=== PATIENT | male | born 2000 | race African-American/Black ===

== ENCOUNTER 2023-04-12 10:04 | Outpatient (AMB) | payer OTHER, SELFPAY ==
[2023-04-12 10:09] VITALS: BP 124/80; PULSE 94; O2SAT 98; BMI 28.2
--- NOTE | 2023-04-12 10:09 | A.OFFPC_ITS ---
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 Required: No Accompanied by: Self / Same As Patient Allergies No Known Allergies Allergy (Verified 04/12/23 10:18) Medication List - Last Reconciled 04/12/23 by Sean Barrios MD No Known Home Meds Tobacco use date assessed: 04/12/23 Dental Screening Dental Screen Date: 04/12/23 Did you have a dental visit in the last 12 months?: Yes Did you have a dental problem in the last 6 months where you did not have access to dental care?: No Was dental information given to patient?: 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, 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 Details Patient comes in today for his annual physical examination and to establish care - is a new patient to the practice He was seen briefly at the walk-in clinic last month for a right big toe injury, which he states has since resolved - was prescribed oral Doxycycline for a week States that he currently feels okay He denies any headaches or dizziness Denies any chest pains, no SOB No nausea/vomiting, no abdominal pain No change in bowel habits noted Denies any acute urinary or symptoms States that he has a history of truncal acne (over his back and shoulder areas) and was prescribed oral Doxycycline 100 mg BID by her previous PCP (hand cultivator) and would like to get a refill on this Rx States that he was never referred to a specialist for his back acne before [facility] Medical History (Updated 04/12/23 @ 10:31 by Sean Barrios MD) Acne rosacea with hyperkeratotic plaques on trunk Overweight (BMI 25.0-29.9) Surgical History (Updated 04/12/23 @ 10:25 by Sean Barrios MD) No pertinent past surgical history Family History Other Chronic mental illness Diabetes Hypertension Substance abuse Social History Housing: Apartment Patient Tobacco Use Status: Never used Tobacco e-Cigarette/Vaping Use: Never Used service: No Current occupational status: employed Current occupational exposures/hazards: No Cognitive needs: No Hearing needs: No Vision needs: No Questionnaire PHQ-9 Over the last 2 weeks, how often have you been bothered by any of the following problems? 1. Little interest or pleasure in doing things: not at all 2. Feeling down, depressed, or hopeless: not at all 3. Trouble falling or staying asleep, or sleeping too much: not at all 4. Feeling tired or having little energy: not at all 5. Poor appetite or overeating: not at all 6. Feeling bad about yourself - or that you are a failure or have let yourself or your family down: not at all 7. Trouble concentrating on things, such as reading the newspaper or watching television: not at all 8. Moving or speaking so slowly that other people could have noticed. Or the opposite - being so fidgety or restless that you have been moving around a lot more than usual: not at all 9. Thoughts that you would be better off or of hurting yourself in some way: not at all Total score: 0 Depression Screening Interpretation: Negative 19458 - PHQ-9 Billing: Yes Source: Developed by Drs. Ashok Crawford, Kya Marie, David New and colleagues, with an educational daryl from [employer]. Thrive Questionnaire Date Thrive assessed: 04/12/23 I am a: Patient What is your living situation today?: I have a steady place to live Within the past 12 months, did the food you bought not last and you didn't have the money to get more?: Never true Within the past 12 months, did you worry whether your food would run out before you got money to buy more?: Never true Do you have trouble paying for medicines?: No Do you have trouble getting transportation to medical appointments?: No Do you have trouble paying your heating and electricity bill?: No Do you have trouble taking care of your child, family member or friend?: No Do you have trouble with day-to-day activities such as bathing, preparing meals, shopping, managing finances, etc.?: No Are you currently unemployed and looking for a job?: No Are you interested in more education?: No Please select the resources that you would like help with: None Currently or been in a relationship where the following occur: no concerns reported AUDIT C Alcohol Use Questionnaire (AUDIT-C) 1. How often do you have a drink containing alcohol?: Never Total Score: 0 Score Reviewed/Action Taken: Yes BRITTNEY-7 AMB Questionnaire BRITTNEY-7 Date BRITTNEY - 7 assessed: 04/12/23 Feeling nervous, anxious, or on edge: 0 = Not at all Not being able to stop or control worryin = Not at all Worrying too much about different things: 0 = Not at all Trouble relaxin = Not at all Being so restless that it is hard to sit still: 0 = Not at all Becoming easily annoyed or irritable: 0 = Not at all Feeling afraid as if something awful might happen: 0 = Not at all Total BRITTNEY-7 score (0-4 normal; 5-9 mild; 10-14 moderate; 15-21 severe): 0 Source: Developed by Drs. Ashok Crawford, Kya Marie, David New and colleagues, with an educational daryl from [employer]. Review of Systems Const Denies chills, Denies fatigue, Denies fever(s), Denies headache(s), Denies malaise and Denies weakness Eyes Denies blurry vision, Denies change in vision, Denies irritation and Denies itchy eyes ENT Denies dysphagia, Denies dizziness, Denies otalgia, Denies headache(s), Denies nasal congestion, Denies neck pain, Denies odynophagia and Denies sore throat Card Denies chest pain, Denies rapid heart rate, Denies irregular heart rhythm, Denies palpitations and Denies dyspnea Resp Denies chest congestion, Denies cough, Denies dyspnea and Denies wheezing GI Denies abdominal pain, Denies bloating, Denies constipation, Denies dysphagia, Denies heartburn, Denies diarrhea, Denies nausea, Denies odynophagia and Denies vomiting Denies hematuria, Denies difficulty urinating, Denies dysuria, Denies urinary frequency and Denies urinary urgency Musc Denies back pain, Denies arthralgias, Denies joint swelling, Denies muscle weakness and Denies neck pain Skin/Breast Reports acne (multiple acne lesions with some scarring over his back), Denies change in pigmentation, Reports lesions, Denies rash and Denies unusual bruising Neuro Denies dizziness, Denies headache(s), Denies paresthesias and Denies weakness Endo Denies fatigue and Denies palpitations Aller/Immun Denies itchy eyes and Denies wheezing Physical exam (Primary Care) Vital Signs: Last Vital Signs Pulse 94 04/12/23 10:09 BP 124/80 04/12/23 10:09 Pulse Ox 98 04/12/23 10:09 Oxygen Delivery Method Room Air 04/12/23 10:09 BMI result Body Mass Index 28.2 Tobacco/Smoking Status: Tobacco use Status Tobacco use date assessed 04/12/23 04/12/23 10:11 Patient Tobacco Use Status Never used Tobacco 04/12/23 10:11 e-Cigarette/Vaping Use Never Used 04/12/23 10:11 PHQ-9: PHQ-9 Score PHQ-9: Total score 0 04/12/23 10:17 Depression Screening Interpretation: Negative Thrive Assessment: Date of Thrive Assessment Date Thrive assessed 04/12/23 04/12/23 10:17 Currently or been in a relationship where the following occur: no concerns reported Const General: no acute distress, alert and awake Orientation/consciousness: patient oriented x3 HENMT Head: Yes normocephalic and Yes atraumatic Ears: external ears normal, TM's normal bilaterally and EAC's normal General nose exam: No nasal discharge present Face and sinus: Yes normal facial exam and Yes sinuses nontender Teeth and gingiva: dentition normal Throat: Yes posterior oropharynx normal and Yes tonsils normal (no TP congestion) Eyes Eyelids: Yes eyelids normal Conjunctivae: conjunctivae normal Pupils: Equal, round and reactive pupils present EOM: EOMs intact bilaterally Neck Neck: Yes no lymphadenopathy and Yes supple Thyroid: Thyroid normal Resp Auscultation: clear to auscultation bilaterally, no rales and no wheezes Cardio Rate: regular rate Rhythm: regular rhythm Heart sounds: no murmurs GI Palpation (GI): Soft to palpation, nontender and No hepatosplenomegaly present Auscultation: normal bowel sounds General: Yes no CVA tenderness Male General Exam: Yes normal external exam Penis: circumcised Scrotum: scrotum normal, testes descended bilaterally, no inguinal hernias and no masses Back/Spine/Pelvis Back: no CVA tenderness Thoracic/Lumbar Spine: thoracic and lumbar spine normal to inspection Skin Other: (+) scattered multiple acne lesions with a few scars noted over the entire back Rashes: no rashes Neuro General: patient oriented x3, moves all extremities, no focal motor deficits and CN's II-XI intact bilaterally Cranial nerves: Yes Equal, round and reactive pupils present Cognition (Neuro): normal cognition Gait exam (Neuro): Normal gait present Extrem General: Yes no clubbing, cyanosis or edema Assessment and Plan Assessment & Plan (1) Annual physical exam: Code(s): Z00.00 - Encounter for general adult medical examination without abnormal findings Plan: Check labs (2) Acne rosacea with hyperkeratotic plaques on trunk: Code(s): L71.9 - Rosacea, unspecified Plan: Patient states that he was prescribed Doxycycline by his previous PCP (hand cultivator) and has been taking Doxycycline 100 mg BID for over a year now for his back acne and would like to see if he can get this Rx refilled Have advised that Doxycycline is usually taken at 100 mg QD for acne prophylaxis and I would prefer he take it that way - Rx sent to his local pharmacy Will also refer him to dermatology for further evaluation and management/recommendations (3) Overweight (BMI 25.0-29.9): Code(s): E66.3 - Overweight Plan: Discussed diet/exercise/lose weight - goal is BMI of < 25 Plan To return in 1 year for his next annual physical examination Orders: Orders Cholesterol Today E66.3 - Overweight, Z00.00 - Encounter for general adult medical examination without abnormal findings Comprehensive Met. Panel Today E66.3 - Overweight, L71.9 - Rosacea, unspecified, Z00.00 - Encounter for general adult medical examination without abnormal findings TSH reflex Free T4 Today E66.3 - Overweight, L71.9 - Rosacea, unspecified, Z00.00 - Encounter for general adult medical examination without abnormal findings Vitamin D 25-OH Total Today E55.9 - Vitamin D deficiency, unspecified, Z00.00 - Encounter for general adult medical examination without abnormal findings Complete Blood Count Auto Diff Today L71.9 - Rosacea, unspecified, Z00.00 - Encounter for general adult medical examination without abnormal findings UA CC w/rflx Micro + Cult Today R30.0 - Dysuria, Z00.00 - Encounter for general adult medical examination without abnormal findings Referrals Dermatology Referral L71.9 - Rosacea, unspecified Medications: New doxycycline hyclate 100 mg PO DAILY 30 days 30 caps 3RF L71.9 - Rosacea, unspecified Coding Level of Care Code New Pt Prev Care 18-39yr([id number] Diagnoses Annual physical exam Z00.00 Acne rosacea with hyperkeratotic plaques on trunk L71.9 Overweight (BMI 25.0-29.9) E66.3
== END 2023-04-12 10:39 | disposition home or self-care (01) ==
PROVIDERS: PCP Internal Medicine; Visit Provider Internal Medicine
DX: Z00.00 Encounter for general adult medical examination without abnormal findings (principal); L71.9 Rosacea, unspecified; E66.3 Overweight
CPT/HCPCS: 99385

== ENCOUNTER 2023-04-12 10:43 | Outpatient (REF) | payer OTHER, SELFPAY ==
[2023-04-12 10:55] LABS: MANUAL DIFF FLAG NO
[2023-04-12 12:04] LABS: Basophils Percent Auto 0.3 % (0-2); Eosinophils Percent Auto 0.6 % (0-4); Hematocrit 44.9 % (42.0-52.0); Hemoglobin 14.7 g/dl (14.0-18.0); Lymphocytes Absolute Auto 1.7 X10*3/uL (1.2-4.9); Lymphocytes Percent Auto 27.5 % (20-40); Mean Corpuscular HGB Conc 32.7 g/dl (31.0-36.0); Mean Corpuscular Hemoglobin 25.7 pg (27.0-33.0); Mean Corpuscular Volume 78.5 fL (80.0-98.0); Mean Platelet Volume 11.2 fL (9.4-12.4); Monocytes Absolute Auto 0.5 X10*3/uL (0.1-1.2); Monocytes Percent Auto 8.4 % (2-11); Neutrophils Percent Auto 63.2 % (45-73); Platelet Count 250 X10*3/uL (160-400); Red Blood Count 5.72 X10*6/uL (4.60-5.80); White Blood Count 6.3 X10*3/uL (4.8-10.8)
[2023-04-12 12:08] LABS: Appearance Urine Clear; Color Urine Yellow; Glucose Urine UA Negative (Negative); Leukocyte Esterase Urine Negative (Negative); Nitrite Urine Negative (Negative); Specific Gravity - Urine 1.025 (1.005-1.025); Urine Blood Negative (Negative); Urine Ketones Trace mg/dL (Negative); Urine Protein Negative (Neg-Trace)
[2023-04-12 13:24] LABS: Alanine Aminotransferase 15 U/L (0-40); Albumin Level 4.5 g/dL (3.5-5.0); Alkaline Phosphatase 108 U/L (39-117); Anion Gap 11 (12-20); Aspartate Amino Transferase 16 U/L (5-37); Bilirubin Total 0.4 mg/dL (0.0-1.0); Blood Urea Nitrogen 12 mg/dL (9-16); Calcium 9.8 mg/dL (8.4-10.2); Carbon Dioxide 28 mmol/L (22-29); Chloride 106 mmol/L (96-108); Cholesterol 152 mg/dL; Estimated Glomerular Filt Rate > 60; Glucose Random 68 mg/dL (60-115); Potassium 3.7 mmol/L (3.3-5.1); Sodium 141 mmol/L (135-145); Total Protein 7.6 g/dL (6.5-8.0)
[2023-04-12 13:41] LABS: TSH reflex Free T4 0.93 uIU/mL (0.32-4.0); Vitamin D 25-OH Total 11.4 ng/mL (>30)
== END 2023-04-12 10:44 | disposition home or self-care (01) ==
LOC: HO.LAB 10:43
PROVIDERS: PCP Internal Medicine; Visit Provider Internal Medicine
DX: Z00.00 Encounter for general adult medical examination without abnormal findings (principal); L71.9 Rosacea, unspecified; R30.0 Dysuria; E55.9 Vitamin D deficiency, unspecified; E66.3 Overweight
CPT/HCPCS: 36415; 80053; 81003; 82306; 82465; 84443; 85025

== ENCOUNTER 2023-07-19 11:39 | Outpatient (AMB) | payer OTHER, SELFPAY ==
[2023-07-19 13:18] VITALS: BP 130/80; PULSE 89; TEMP 36.6; O2SAT 99; BMI 28.1
--- NOTE | 2023-07-19 13:18 | AM.OFFWIN_ITS ---
Intake Vital Signs 07/19/23 13:18 Height 6 ft 3 in Weight 102.058 kg BMI 28.1 BP 130/80 Blood Pressure Location Rt brachial Position Sitting Pulse 89 Pulse Source Pulse Oximeter Temp 97.8 F Temp Source Temporal Artery Scan Pulse Oximetry (%) 99 Oxygen Delivery Method Room Air Intake Visit Reasons: EP Lft foot infected open wound Intake Note: pt is here for c.o right foot open wound Patient Tobacco Use Status: Never used Tobacco Allergies No Known Allergies Allergy (Verified 07/19/23 13:18) Do you need a note to return to daycare/school/sports/work: Yes HPI HPI Comments History of Present Illness Details 1322 22-year-old male presents with a wound t o his right foot on the top, has been present for 2 days, patient reports this 1 started after work 1 day, he wears work boots but is not sure if these contributed to the wound. He reports it started off is red and now it appears to be yellow. He reports it is uncomfortable. He covered it with a Band-Aid and bacitracin. Denies numbness, tingling, fevers, chills, blunt trauma. Physical exam significant for abrasion to top of right foot size of a nickel with overlying erythema and warmth. Normal sensation. Neurovascular intact Likely infected abrasion. Unlikely threat to [place], neurovascular compromise, fracture dislocation Plan bacitracin Educated patient on diagnosis and treatment plan, answered all question, patient verbalizes understanding. At this time patient will be discharged home, advised to return with new or worsening symptoms. Educated on worrisome signs and symptoms and when to return. At this time I feel comfortable discharge home. [facility] Medical History Acne rosacea with hyperkeratotic plaques on trunk Overweight (BMI 25.0-29.9) Surgical History No pertinent past surgical history Family History Other Chronic mental illness Diabetes Hypertension Substance abuse Social History Housing: Apartment Patient Tobacco Use Status: Never used Tobacco e-Cigarette/Vaping Use: Never Used service: No Current occupational status: employed Current occupational exposures/hazards: No Cognitive needs: No Hearing needs: No Vision needs: No Review of Systems Const Details: Constitutional : No Weight loss, No Fever, No Chills, No Fatigue, No Malaise ENT/Mouth : No sore throat, No Rhinorrhea Eyes: No Eye Pain, No Swelling, No Redness Cardiovascular : No Chest Pain, No SOB, No Dyspnea on Exertion, No Orthopnea, No Edema, No Palpitations Respiratory : No Cough, No Sputum, No Wheezing Gastrointestinal : No Nausea, No Vomiting, No Diarrhea, No Constipation, No abdominal Pain, No Hematochezia, No Melena Genitourinary : No Dysuria, No Urinary Frequency, No Hematuria, Musculoskeletal : No joint pain, No Myalgias, No Joint Swelling Skin : + Skin Lesions, No rash Neuro : No Weakness, No Numbness, No Dizziness, No Headache Psych : No Anxiety/Panic, No Depression All other systems reviewed and are negative All systems reviewed & are unremarkable except as noted in HPI and below Physical Exam Vital Signs: Last Vital Signs Temp 97.8 F 07/19/23 13:18 Pulse 89 07/19/23 13:18 BP 130/80 07/19/23 13:18 Pulse Ox 99 07/19/23 13:18 Oxygen Delivery Method Room Air 07/19/23 13:18 BMI result Body Mass Index 28.1 vss Appearance: Alert.? Oriented X3.? No acute distress.? Head: Normocephalic, atraumatic, no step-offs or deformities Eyes: Pupils equal, round and reactive to light.? CVS: Normal heart rate and rhythm.? Pulses normal.? Respiratory: No respiratory distress.? Breath sounds normal.? Skin: Skin warm and dry.? Normal skin color.? Normal skin turgor.? Extremities: No lower extremity edema.? 5/5 strength to bilateral upper and lower extremities 2+ DP,AT,PT pulses equal and b/l. No foot drop + abrasion renetta size and round to top of right foot with surrounding warmth and errythema. Neuro: Oriented X 3.? No motor deficit.? No sensory deficit. CN 2-12 intact Assessment & Plan Assessment & Plan (1) Abrasion foot/toe: Code(s): S90.819A - Abrasion, unspecified foot, initial encounter Plan Take your medications as prescribed. If you were prescribed antibiotics today, it is important that you take your medication to their entirety, do not skip any doses, do not finish them early. Follow-up with your primary care provider this week. Return to the emergency department with new or worsening symptoms. Such as fevers, chills, chest pain, shortness of breath, nausea, vomiting, dizziness, headache, vision changes, lethargy In case of emergency call 911 Medications: New bacitracin zinc 1 appl topical BID 14 grams 0RF Coding Level of Care Code Est Pt Level 3 (54269) Diagnoses Abrasion foot/toe S90.817O
== END 2023-07-19 13:22 | disposition home or self-care (01) ==
PROVIDERS: PCP Internal Medicine; Visit Provider Physician Assistant
DX: S90.812A Abrasion, left foot, initial encounter (principal)
CPT/HCPCS: 99213

== ENCOUNTER 2024-06-16 15:39 | Outpatient (AMB) | payer OTHER, SELFPAY ==
[2024-06-16 15:41] VITALS: BP 126/84; PULSE 87; O2SAT 96; BMI 26.4
--- NOTE | 2024-06-16 15:41 | MHC.PC.OV ---
Vital Signs 06/16/24 15:41 Height 6 ft 3 in Weight 211 lb 8 oz BMI 26.4 BP 126/84 Blood Pressure Location Lt brachial Position Sitting Pulse 87 Pulse Source Pulse Oximeter Pulse Oximetry (%) 96 Oxygen Delivery Method Room Air Intake Visit Reasons: ANNUAL Life Skills Educator Required: No Accompanied by: Self / Same As Patient Allergies No Known Allergies Allergy (Verified 06/16/24 16:26) Medication List - Last Reconciled 06/16/24 by Sean Barrios MD bacitracin zinc 1 appl topical BID Tobacco use date assessed: 06/16/24 Dental Screening Dental Screen Date: 06/16/24 Did you have a dental visit in the last 12 months?: Yes Did you have a dental problem in the last 6 months where you did not have access to dental care?: No Was dental information given to patient?: Patient has dentist HPI ANNUAL HPI Details Patient comes in today for his annual physical examination States that he feels okay He denies any headaches or dizziness Denies any chest pains, no shortness of breath No nausea/vomiting, no abdominal pain No change in bowel habits noted He denies any acute urinary symptoms [facility] Medical History (Updated 06/16/24 @ 16:29 by Sean Barrios MD) Vitamin D deficiency Acne rosacea with hyperkeratotic plaques on trunk Overweight (BMI 25.0-29.9) Surgical History No pertinent past surgical history Family History Other Chronic mental illness Diabetes Hypertension Substance abuse Social History Housing: Apartment Patient Tobacco Use Status: Never used Tobacco e-Cigarette/Vaping Use: Never Used service: No Current occupational status: employed Current occupational exposures/hazards: No Cognitive needs: No Hearing needs: No Vision needs: No Questionnaire PHQ-9 Over the last 2 weeks, how often have you been bothered by any of the following problems? 1. Little interest or pleasure in doing things: not at all 2. Feeling down, depressed, or hopeless: not at all 3. Trouble falling or staying asleep, or sleeping too much: not at all 4. Feeling tired or having little energy: several days 5. Poor appetite or overeating: not at all 6. Feeling bad about yourself - or that you are a failure or have let yourself or your family down: not at all 7. Trouble concentrating on things, such as reading the newspaper or watching television: not at all 8. Moving or speaking so slowly that other people could have noticed. Or the opposite - being so fidgety or restless that you have been moving around a lot more than usual: not at all 9. Thoughts that you would be better off or of hurting yourself in some way: not at all Total score: 1 Depression Screening Interpretation: Negative Depression Screening Done: Yes 32255 - PHQ-9 Billing: Yes Source: Developed by Drs. Ashok Crawford, Kya Marie, David New and colleagues, with an educational daryl from [employer]. Thrive Questionnaire Date Thrive assessed: 06/16/24 I am a: Patient What is your living situation today?: I have a steady place to live Within the past 12 months, did the food you bought not last and you didn't have the money to get more?: Never true Within the past 12 months, did you worry whether your food would run out before you got money to buy more?: Never true Do you have trouble paying for medicines?: No Do you have trouble getting transportation to medical appointments?: No Do you have trouble paying your heating and electricity bill?: No Do you have trouble taking care of your child, family member or friend?: No Do you have trouble with day-to-day activities such as bathing, preparing meals, shopping, managing finances, etc.?: No Are you currently unemployed and looking for a job?: No Are you interested in more education?: No Please select the resources that you would like help with: None Currently or been in a relationship where the following occur: No concerns reported THRIVE Score: 0 AUDIT C Alcohol Use Questionnaire (AUDIT-C) 1. How often do you have a drink containing alcohol?: 2-4 times a month 2. How many drinks containing alcohol do you have on a typical day when you are drinking?: 3 or 4 3. How often do you have six or more drinks on one occasion?: Less than monthly Total Score: 4 Score Reviewed/Action Taken: Yes BRITTNEY-7 AMB Questionnaire BRITTNEY-7 Date BRITTNEY - 7 assessed: 06/16/24 Feeling nervous, anxious, or on edge: 0 = Not at all Not being able to stop or control worryin = Not at all Worrying too much about different things: 0 = Not at all Trouble relaxin = Not at all Being so restless that it is hard to sit still: 0 = Not at all Becoming easily annoyed or irritable: 1 = Several days Feeling afraid as if something awful might happen: 0 = Not at all Total BRITTNEY-7 score (0-4 normal; 5-9 mild; 10-14 moderate; 15-21 severe): 1 Source: Developed by Drs. Ashok Crawford, Kya Marie, David New and colleagues, with an educational daryl from [employer]. Review of Systems Const Denies chills, Denies fatigue, Denies fever(s), Denies headache(s), Denies malaise and Denies weakness Eyes Denies blurry vision, Denies change in vision, Denies irritation and Denies itchy eyes ENT Denies dysphagia, Denies dizziness, Denies otalgia, Denies headache(s), Denies nasal congestion, Denies neck pain, Denies odynophagia and Denies sore throat Card Denies chest pain, Denies rapid heart rate, Denies irregular heart rhythm, Denies palpitations and Denies dyspnea Resp Denies chest congestion, Denies cough, Denies dyspnea and Denies wheezing GI Denies abdominal pain, Denies bloating, Denies constipation, Denies dysphagia, Denies heartburn, Denies diarrhea, Denies nausea, Denies odynophagia and Denies vomiting Denies hematuria, Denies difficulty urinating, Denies dysuria, Denies urinary frequency and Denies urinary urgency Musc Denies back pain, Denies arthralgias, Denies joint swelling, Denies muscle weakness and Denies neck pain Skin/Breast Denies change in pigmentation, Denies lesions, Denies rash and Denies unusual bruising Neuro Denies dizziness, Denies headache(s), Denies paresthesias and Denies weakness Endo Denies fatigue and Denies palpitations Aller/Immun Denies itchy eyes and Denies wheezing Physical exam (Primary Care) Vital Signs: Last Vital Signs Pulse 87 06/16/24 15:41 BP 126/84 06/16/24 15:41 Pulse Ox 96 06/16/24 15:41 Oxygen Delivery Method Room Air 06/16/24 15:41 BMI result Body Mass Index 26.4 Tobacco/Smoking Status: Tobacco use Status Tobacco use date assessed 06/16/24 06/16/24 15:46 Patient Tobacco Use Status Never used Tobacco 06/16/24 15:46 e-Cigarette/Vaping Use Never Used 06/16/24 15:46 PHQ-9: PHQ-9 Score PHQ-9: Total score 1 06/16/24 16:31 Depression Screening Interpretation: Negative Thrive Assessment: Date of Thrive Assessment Date Thrive assessed 06/16/24 06/16/24 15:46 Currently or been in a relationship where the following occur: No concerns reported Const General: no acute distress, alert and awake Orientation/consciousness: patient oriented x3 HENMT Head: Yes normocephalic and Yes atraumatic Ears: external ears normal, TM's normal bilaterally and EAC's normal General nose exam: No nasal discharge present Face and sinus: Yes normal facial exam and Yes sinuses nontender Teeth and gingiva: dentition normal Throat: Yes posterior oropharynx normal and Yes tonsils normal (no TP congestion) Eyes Eyelids: Yes eyelids normal Conjunctivae: conjunctivae normal Pupils: Equal, round and reactive pupils present EOM: EOMs intact bilaterally Neck Neck: Yes no lymphadenopathy and Yes supple Thyroid: Thyroid normal Resp Auscultation: clear to auscultation bilaterally, no rales and no wheezes Cardio Rate: regular rate Rhythm: regular rhythm Heart sounds: no murmurs GI Palpation (GI): Soft to palpation, nontender and No hepatosplenomegaly present Auscultation: normal bowel sounds General: Yes no CVA tenderness Back/Spine/Pelvis Back: no CVA tenderness Thoracic/Lumbar Spine: thoracic and lumbar spine normal to inspection Skin Lesions: no lesions Rashes: no rashes Neuro General: patient oriented x3, moves all extremities, no focal motor deficits and CN's II-XI intact bilaterally Cranial nerves: Yes Equal, round and reactive pupils present Cognition (Neuro): normal cognition Gait exam (Neuro): Normal gait present Extrem General: Yes no clubbing, cyanosis or edema Office Procedures Flu Questionnaire Does the patient have a severe egg allergy?: No Immunizations Fluarix Triv [id number] (PF) 45 mcg (15 mcg x 3)/0.5 mL IM syringe Performing Provider: Sean Barrios MD [place] Documented (not given) by: BRITNI Serrano on 06/16/24 15:47 Reason Not Given: Received Previously Coding Level of Care Code Est Pt Prev Care 18-39y(04265) Diagnoses Annual physical exam Z00.00 Acne rosacea with hyperkeratotic plaques on trunk L71.9 Vitamin D deficiency E55.9 RBC microcytosis R71.8 Overweight (BMI 25.0-29.9) E66.3 Assessment & Plan Assessment & Plan (1) Annual physical exam: Code(s): Z00.00 - Encounter for general adult medical examination without abnormal findings Category: Medical Plan: Check labs (2) Acne rosacea with hyperkeratotic plaques on trunk: Code(s): L71.9 - Rosacea, unspecified Category: Medical Plan: Continue topical Bacitracin zinc BID as instructed Follow up with dermatology as scheduled (3) Vitamin D deficiency: Code(s): E55.9 - Vitamin D deficiency, unspecified Category: Medical Plan: He is advised that his Vitamin D level was low on his previous labs from last year Will start him on Vitamin D3 2000 units QD Will recheck his Vitamin D level for follow up (4) RBC microcytosis: Code(s): R71.8 - Other abnormality of red blood cells Category: Medical Plan: Will send him for Hgb electrophoresis for further evaluation (5) Overweight (BMI 25.0-29.9): Code(s): E66.3 - Overweight Category: Medical Plan: Reinforced diet/exercise as tolerated/lose weight Plan To return in 1 year for his next annual physical examination Orders: Orders Influenza [id number] Immunization 06/16/24 Z23 - Encounter for immunization Complete Blood Count Auto Diff 06/16/24 D64.9 - Anemia, unspecified, Z00.00 - Encounter for general adult medical examination without abnormal findings Cholesterol 06/16/24 Z00.00 - Encounter for general adult medical examination without abnormal findings TSH reflex Free T4 06/16/24 E78.00 - Pure hypercholesterolemia, unspecified, Z00.00 - Encounter for general adult medical examination without abnormal findings UA CC w/rflx Micro + Cult 06/16/24 R30.0 - Dysuria, Z00.00 - Encounter for general adult medical examination without abnormal findings Vitamin D 25-OH Total 06/16/24 E55.9 - Vitamin D deficiency, unspecified, Z00.00 - Encounter for general adult medical examination without abnormal findings Comprehensive Met. Panel 06/16/24 Z00.00 - Encounter for general adult medical examination without abnormal findings IRON PROFILE 06/16/24 R71.8 - Other abnormality of red blood cells Hemoglobin Electrophoresis 06/16/24 R71.8 - Other abnormality of red blood cells Medications: New cholecalciferol (vitamin D3) 50 mcg PO DAILY 90 days 90 caps 3RF E55.9 - Vitamin D deficiency, unspecified
== END 2024-06-16 16:36 | disposition home or self-care (01) ==
PROVIDERS: PCP Internal Medicine; Visit Provider Internal Medicine
DX: Z00.00 Encounter for general adult medical examination without abnormal findings (principal); L71.9 Rosacea, unspecified; E55.9 Vitamin D deficiency, unspecified; R71.8 Other abnormality of red blood cells; E66.3 Overweight

== ENCOUNTER → 2024-06-16 15:39 | Outpatient (BNVA) | payer OTHER, SELFPAY | PROVIDERS: PCP Internal Medicine; Visit Provider Internal Medicine | DX: Z00.01 Encounter for general adult medical examination with abnormal findings (principal); L71.9 Rosacea, unspecified; E55.9 Vitamin D deficiency, unspecified; R71.8 Other abnormality of red blood cells; E66.3 Overweight; Z68.26 Body mass index [BMI] 26.0-26.9, adult | CPT/HCPCS: 90471; 96127 ==

== ENCOUNTER 2024-07-25 10:27 | Outpatient (REF) | payer OTHER, SELFPAY ==
[2024-07-25 10:39] LABS: MANUAL DIFF FLAG NO
[2024-07-25 11:09] LABS: Basophils Percent Auto 0.5 % (0-2); Eosinophils Percent Auto 0.3 % (0-4); Hemoglobin 15.1 g/dl (14.0-18.0); Imm Gran Abs Auto 0.02 X10*3/uL (0.00-0.03); Imm Gran Pct Auto 0.3 % (0.0-0.4); Lymphocytes Absolute Auto 1.8 X10*3/uL (1.2-4.9); Lymphocytes Percent Auto 29.5 % (20-40); Mean Corpuscular HGB Conc 32.8 g/dl (31.0-36.0); Mean Corpuscular Hemoglobin 25.5 pg (27.0-33.0); Mean Corpuscular Volume 77.8 fL (80.0-98.0); Mean Platelet Volume 10.5 fL (9.4-12.4); Monocytes Absolute Auto 0.4 X10*3/uL (0.1-1.2); Monocytes Percent Auto 7.2 % (2-11); Neutrophils Absolute Auto 3.8 x10*3/uL (2.0-8.3); Neutrophils Percent Auto 62.2 % (45-73); Platelet Count 235 X10*3/uL (160-400); Red Blood Count 5.91 X10*6/uL (4.60-5.80); Red Cell Distribution Width 12.7 % (11.0-16.0); White Blood Count 6.1 X10*3/uL (4.8-10.8)
[2024-07-25 11:30] LABS: Appearance Urine Clear; Color Urine Yellow; Glucose Urine UA Negative (Negative); Leukocyte Esterase Urine Negative (Negative); Nitrite Urine Negative (Negative); Specific Gravity - Urine 1.025 (1.005-1.025); Urine Blood Negative (Negative); Urine Ketones Negative (Negative); Urine Protein Negative (Neg-Trace)
[2024-07-25 11:49] LABS: Alanine Aminotransferase 21 U/L (0-40); Albumin Level 4.7 g/dL (3.5-5.0); Alkaline Phosphatase 91 U/L (39-117); Anion Gap 11 (12-20); Aspartate Amino Transferase 24 U/L (5-37); Bilirubin Total 0.6 mg/dL (0.0-1.0); Blood Urea Nitrogen 13 mg/dL (9-16); Calcium 9.7 mg/dL (8.4-10.2); Carbon Dioxide 30 mmol/L (22-29); Chloride 103 mmol/L (96-108); Cholesterol 154 mg/dL (<200); Estimated Glomerular Filt Rate > 60; Glucose Random 66 mg/dL (60-115); Iron 88 mcg/dL (45-160); Percent Iron Saturation 28 % (15-50); Potassium 4.1 mmol/L (3.3-5.1); Sodium 140 mmol/L (135-145); Total Iron Binding Capacity 320 mcg/dL (228-428); Total Protein 7.4 g/dL (6.5-8.0); Unsaturated Iron Binding 232 ug/dL
[2024-07-25 12:05] LABS: TSH reflex Free T4 0.96 uIU/mL (0.32-4.0)
[2024-07-28 08:58] LABS: Hematocrit 47.7 % (38.5-50.0); Hemoglobin 15.3 g/dL (13.2-17.1); MCH 25.7 pg (27.0-33.0); MCV 80.2 fL (80.0-100.0); RBC 5.95 Million/uL (4.20-5.80); RDW 13.5 % (11.0-15.0)
== END 2024-07-25 10:28 | disposition home or self-care (01) ==
LOC: HO.LAB 10:27
PROVIDERS: PCP Internal Medicine; Visit Provider Internal Medicine
DX: Z00.00 Encounter for general adult medical examination without abnormal findings (principal); E78.00 Pure hypercholesterolemia, unspecified; R71.8 Other abnormality of red blood cells; D64.9 Anemia, unspecified; R30.0 Dysuria; E55.9 Vitamin D deficiency, unspecified
CPT/HCPCS: 36415; 80053; 81003; 82306; 82465; 83020; 83540; 84443; 85014; 85018; 85025; 85041

== ENCOUNTER 2025-04-16 10:36 | Outpatient (AMB) | payer OTHER, SELFPAY ==
--- OUTSIDE RECORDS SUMMARY | 2025-04-16 10:41 | XMS_ITS | Encounter Summary ---
Author Organization [facility] Address [address] [place] [id number] Phone Care Team Providers Care Photograph Printer Name Role Phone Liborio Grant MD Primary Care Provider [phone] Encounter Details Date Type Department Care Team (Late st Contact Info) Description 08/29/2012 Documentation [facility] [place] Family Medicine [address] [place], [place] [id number] Family Medicine, Physician [address] [place] [address] Social History Tobacco Use Types Packs/Day Years Used Date Smoking Tobacco: Never Assessed Sex and Gender Information Value Date Recorded Sex Assigned at Male 10/21/2020 1:42 PM EST Legal Sex Male 4:40 PM EDT Gender Identity Male 10/21/2020 1:42 PM EST Sexual Orientation Straight 10/21/2020 1: 42 PM EST documented as of this encounter Plan of Treatment Not on file documented as of this encounter Visit Diagnoses Not on filedocumented in this encounter Care Teams Photograph Printer Relationship Specialty Start Date End Date Liborio Grant MD [address] [place] [address] [place] [address] PCP - General Pediatrics 06/25/17 02/20/23 documented as of this encounter
[2025-04-16 11:24] VITALS: BP 130/72; PULSE 73; TEMP 36.8; O2SAT 97; BMI 23.6
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
== END 2025-04-16 12:26 | disposition home or self-care (01) ==
PROVIDERS: PCP Internal Medicine; Visit Provider Physician Assistant
DX: M79.18 Myalgia, other site (principal)

== ENCOUNTER 2025-06-18 13:41 | Outpatient (AMB) | payer OTHER, SELFPAY ==
[2025-06-18 13:49] VITALS: BP 132/70; PULSE 70; O2SAT 99; BMI 23.7
--- NOTE | 2025-06-18 13:49 | MHC.PC.OV ---
Vital Signs 06/18/25 13:49 Height 6 ft 3 in Weight 190 lb BMI 23.7 BP 132/70 Blood Pressure Location Lt brachial Position Sitting Pulse 70 Pulse Source Pulse Oximeter Pulse Oximetry (%) 99 Oxygen Delivery Method Room Air Intake Visit Reasons: Annual Exam Skate Hop Required: No Accompanied by: Self / Same As Patient Allergies No Known Allergies Allergy (Verified 06/18/25 14:21) Medication List - Last Reconciled 06/18/25 by Sean Barrios MD benzoyl peroxide 10% topical DAILY cholecalciferol (vitamin D3) 50 mcg PO DAILY 90 days Tobacco use date assessed: 06/18/25 Dental Screening Dental Screen Date: 06/18/25 Did you have a dental visit in the last 12 months?: Yes Did you have a dental problem in the last 6 months where you did not have access to dental care?: No Was dental information given to patient?: Patient has dentist HPI Annual Exam HPI Details Patient comes in today for his annual physical examination States that he feels okay He denies any headaches or dizziness Denies any chest pains, no shortness of breath No nausea/vomiting, no abdominal pain No change in bowel habits noted He denies any acute urinary symptoms [facility] Medical History (Updated 06/18/25 @ 14:24 by Sean Barrios MD) Vitamin D deficiency Acne rosacea with hyperkeratotic plaques on trunk Surgical History No pertinent past surgical history Family History Other Chronic mental illness Diabetes Hypertension Substance abuse Social History Housing: Apartment Patient Tobacco Use Status: Never used Tobacco e-Cigarette/Vaping Use: Never Used service: No Current occupational status: employed Current occupational exposures/hazards: No Cognitive needs: No Hearing needs: No Vision needs: No Questionnaire PHQ-9 Over the last 2 weeks, how often have you been bothered by any of the following problems? 1. Little interest or pleasure in doing things: not at all 2. Feeling down, depressed, or hopeless: not at all 3. Trouble falling or staying asleep, or sleeping too much: not at all 4. Feeling tired or having little energy: several days 5. Poor appetite or overeating: not at all 6. Feeling bad about yourself - or that you are a failure or have let yourself or your family down: not at all 7. Trouble concentrating on things, such as reading the newspaper or watching television: not at all 8. Moving or speaking so slowly that other people could have noticed. Or the opposite - being so fidgety or restless that you have been moving around a lot more than usual: not at all 9. Thoughts that you would be better off or of hurting yourself in some way: not at all Total score: 1 Depression Screening Interpretation: Negative Depression Screening Done: Yes 13778 - PHQ-9 Billing: Yes Source: Developed by Drs. Ashok Crawford, Kya Marie, David New and colleagues, with an educational daryl from [employer]. Thrive Questionnaire Date Thrive assessed: 06/18/25 I am a: Patient What is your living situation today?: I have a steady place to live Within the past 12 months, did the food you bought not last and you didn't have the money to get more?: Never true Within the past 12 months, did you worry whether your food would run out before you got money to buy more?: Never true Do you have trouble paying for medicines?: No Do you have trouble getting transportation to medical appointments?: No Do you have trouble paying your heating and electricity bill?: No Do you have trouble taking care of your child, family member or friend?: No Do you have trouble with day-to-day activities such as bathing, preparing meals, shopping, managing finances, etc.?: No Are you currently unemployed and looking for a job?: No Are you interested in more education?: No Please select the resources that you would like help with: None Currently or been in a relationship where the following occur: No concerns reported THRIVE Score: 0 AUDIT C Alcohol Use Questionnaire (AUDIT-C) 1. How often do you have a drink containing alcohol?: 2-4 times a month 2. How many drinks containing alcohol do you have on a typical day when you are drinking?: 3 or 4 3. How often do you have six or more drinks on one occasion?: Less than monthly Total Score: 4 Score Reviewed/Action Taken: Yes BRITTNEY-7 AMB Questionnaire BRITTNEY-7 Date BRITTNEY - 7 assessed: 06/18/25 Feeling nervous, anxious, or on edge: 0 = Not at all Not being able to stop or control worryin = Not at all Worrying too much about different things: 0 = Not at all Trouble relaxin = Not at all Being so restless that it is hard to sit still: 0 = Not at all Becoming easily annoyed or irritable: 1 = Several days Feeling afraid as if something awful might happen: 0 = Not at all Total BRITTNEY-7 score (0-4 normal; 5-9 mild; 10-14 moderate; 15-21 severe): 1 Source: Developed by Drs. Ashok Crawford, Kya Marie, David New and colleagues, with an educational daryl from [employer]. Review of Systems Const Denies chills, Denies fatigue, Denies fever(s), Denies headache(s), Denies malaise and Denies weakness Eyes Denies blurry vision, Denies change in vision, Denies irritation and Denies itchy eyes ENT Denies dysphagia, Denies dizziness, Denies otalgia, Denies headache(s), Denies nasal congestion, Denies neck pain, Denies odynophagia and Denies sore throat Card Denies chest pain, Denies rapid heart rate, Denies irregular heart rhythm, Denies palpitations and Denies dyspnea Resp Denies chest congestion, Denies cough, Denies dyspnea and Denies wheezing GI Denies abdominal pain, Denies bloating, Denies constipation, Denies dysphagia, Denies heartburn, Denies diarrhea, Denies nausea, Denies odynophagia and Denies vomiting Denies hematuria, Denies difficulty urinating, Denies dysuria, Denies urinary frequency and Denies urinary urgency Musc Denies back pain, Denies arthralgias, Denies joint swelling, Denies muscle weakness and Denies neck pain Skin/Breast Denies change in pigmentation, Denies lesions, Denies rash and Denies unusual bruising Neuro Denies dizziness, Denies headache(s), Denies paresthesias and Denies weakness Endo Denies fatigue and Denies palpitations Aller/Immun Denies itchy eyes and Denies wheezing Physical exam (Primary Care) Vital Signs: Last Vital Signs Pulse 70 06/18/25 13:49 BP 132/70 06/18/25 13:49 Pulse Ox 99 06/18/25 13:49 Oxygen Delivery Method Room Air 06/18/25 13:49 BMI result Body Mass Index 23.7 Tobacco/Smoking Status: Tobacco use Status Tobacco use date assessed 06/18/25 06/18/25 13:56 Patient Tobacco Use Status Never used Tobacco 06/18/25 13:56 e-Cigarette/Vaping Use Never Used 06/18/25 13:56 PHQ-9: PHQ-9 Score PHQ-9: Total score 1 06/18/25 13:56 Depression Screening Interpretation: Negative Thrive Assessment: Date of Thrive Assessment Date Thrive assessed 06/18/25 06/18/25 13:56 Currently or been in a relationship where the following occur: No concerns reported Const General: no acute distress, alert and awake Orientation/consciousness: patient oriented x3 HENMT Head: Yes normocephalic and Yes atraumatic Ears: external ears normal, TM's normal bilaterally and EAC's normal General nose exam: No nasal discharge present Face and sinus: Yes normal facial exam and Yes sinuses nontender Teeth and gingiva: dentition normal Throat: Yes posterior oropharynx normal and Yes tonsils normal (no TP congestion) Eyes Eyelids: Yes eyelids normal Conjunctivae: conjunctivae normal Pupils: Equal, round and reactive pupils present EOM: EOMs intact bilaterally Neck Neck: Yes no lymphadenopathy and Yes supple Thyroid: Thyroid normal Resp Auscultation: clear to auscultation bilaterally, no rales and no wheezes Cardio Rate: regular rate Rhythm: regular rhythm Heart sounds: no murmurs GI Palpation (GI): Soft to palpation, nontender and No hepatosplenomegaly present Auscultation: normal bowel sounds General: Yes no CVA tenderness Back/Spine/Pelvis Back: no CVA tenderness Thoracic/Lumbar Spine: thoracic and lumbar spine normal to inspection Skin Lesions: no lesions Rashes: no rashes Neuro General: patient oriented x3, moves all extremities, no focal motor deficits and CN's II-XI intact bilaterally Cranial nerves: Yes Equal, round and reactive pupils present Cognition (Neuro): normal cognition Gait exam (Neuro): Normal gait present Extrem General: Yes no clubbing, cyanosis or edema Coding Level of Care Code Est Pt Prev Care 18-39y(36238) Diagnoses Annual physical exam Z00.00 Acne rosacea with hyperkeratotic plaques on trunk L71.9 Vitamin D deficiency E55.9 RBC microcytosis R71.8 Additional Codes PHQ-9 - 01989 - PHQ-9 Billing: Yes ([id number]) Assessment & Plan Assessment & Plan (1) Annual physical exam: Code(s): Z00.00 - Encounter for general adult medical examination without abnormal findings Category: Medical Plan: Check labs KEVIN to complete his annual exam today He is advised that his labs done last year all came back okay with no concerning findings (2) Acne rosacea with hyperkeratotic plaques on trunk: Code(s): L71.9 - Rosacea, unspecified Category: Medical Plan: Continue topical Benzoyl peroxide 10% QD as instructed Follow up with dermatology as scheduled (3) Vitamin D deficiency: Code(s): E55.9 - Vitamin D deficiency, unspecified Category: Medical Plan: Continue Vitamin D3 2000 units QD Will recheck his Vitamin D level for follow up (4) RBC microcytosis: Code(s): R71.8 - Other abnormality of red blood cells Category: Medical Plan: His Hgb electrophoresis checked last year in July 2024 came back normal Plan To return in 1 year for his next annual physical examination Orders: Orders Complete Blood Count Auto Diff Today D64.9 - Anemia, unspecified, Z00.00 - Encounter for general adult medical examination without abnormal findings TSH reflex Free T4 Today E78.00 - Pure hypercholesterolemia, unspecified, Z00.00 - Encounter for general adult medical examination without abnormal findings Cholesterol Today Z00.00 - Encounter for general adult medical examination without abnormal findings Comprehensive Met. Panel Today Z00.00 - Encounter for general adult medical examination without abnormal findings UA CC w/rflx Micro + Cult Today R30.0 - Dysuria, Z00.00 - Encounter for general adult medical examination without abnormal findings Vitamin D 25-OH Total Today E55.9 - Vitamin D deficiency, unspecified, Z00.00 - Encounter for general adult medical examination without abnormal findings
--- OUTSIDE RECORDS SUMMARY | 2025-06-18 16:10 | XMS_ITS | Encounter Summary ---
Author Organization [facility] Address [address] [place] [id number] Phone Care Team Providers Care Drywall Hanger Framer Name Role Phone Liborio Grant MD Primary Care Provider [phone] Encounter Details Date Type Department Care Team (Late st Contact Info) Description 04/18/2017 Conversion Encounter [facility] [place] [address] [place] [address] Social History Tobacco Use Types Packs/Day Years Used Date Smoking Tobacco: Never Comments:Never smoker Sex and Gender Information Value Date Recorded Sex Assigned at Male 10/21/2020 1:42 PM EST Legal Sex Male 4:40 PM EDT Gender Identity Male 10/21/2020 1:42 PM EST Sexual Orientation Straight 10/21/2020 1: 42 PM EST documented as of this encounter Plan of Treatment Not on file documented as of this encounter Visit Diagnoses Not on filedocumented in this encounter Care Teams Drywall Hanger Framer Relationship Specialty Start Date End Date Liborio Grant MD [address] [place] [address] PCP - General Pediatrics 06/25/17 02/20/23 documented as of this encounter
--- OUTSIDE RECORDS SUMMARY | 2025-06-18 16:10 | XMS_ITS | Encounter Summary ---
Author Organization [facility] Address [address] [place] [id number] Phone Care Team Providers Care Parker Name Role Phone Liborio Grant MD Primary Care Provider [phone] Encounter Details Date Type Department Care Team (Late st Contact Info) Description 08/29/2012 Documentation [facility] [place] Family Medicine [address] [place], [place] [id number] Family Medicine, Physician [address] [place] [address] Social History Tobacco Use Types Packs/Day Years [...] on filedocumented in this encounter Care Teams Parker Relationship Specialty Start Date End Date Liborio Grant MD [address] [place] [address] [address] PCP - General Pediatrics 06/25/17 02/20/23 documented as of this encounter
--- OUTSIDE RECORDS SUMMARY | 2025-06-18 16:10 | XMS_ITS | Clinical Summary ---
Author Organization [facility] Address [address] [place] [id number] Phone Care Team Providers Care Manager Laboratory Name Role Phone Unavailable Primary Care Provider Unavailabl e Allergies No known active allergies Medications doxycycline 100 MG capsuleIndicati ons:Acne vulgaris TAKE 1 CAPSULE BY MOUTH TWICE A DAY 60 capsule 2 10/02/2022 Active Active Problems Problem Noted Date Diagnosed Date Acne vulgaris 10/21/2020 Overview (03/15/2022): Minocycline helpful Assessment & Plan (03/15/2022 1:44 PM EDT): Using minocycline, finds it helpful. Has tried stopping and it flares. BMI 31.0-31.9,adult 10/26/2013 Assessment & Plan (03/15/2022 1:41 PM EDT): Discusssed diet, exercise. Will check labs today. Resolved Problems Problem Noted Date Diagnosed Date Resolved Date White coat syndrome without diagnosis of hypertension 10/07/2019 03/15/2022 Overview (10/21/2020): 10/23- F/u from Dr. Mariee indicated 'white coat hypertension, no f/u indicated' Unclear if essential vs 'white coat' -- saw Dr. Mariee 09/21 - to f/u with BP readings at home. Immunizations Immunization Administration Dates Next Due DTaP 5 02/21/2006, 3,05/26/2002,03/30,01/27/2002 HPV Vaccine 9 Valent 10/23/2017,05/08/2017,02/27 Hep A, ped/adol 06/29/2016,12/06/2015 Hep B, ped/adol 05/26/2002,2001,2001 Hib (PRP-T) 03/08/2003, 2,03/30/2002,01/27 IPV 02/21/2006, 3,03/30/2002,01/27 Influenza, injectable, quadr ivalent, preservative free 06/08/2022,06/09/2021,05/22/2020,06/10,06/09/2018,06/25/2017,06/29/2016 MMR 02/21/2006,11/24/2002 Meningococcal B Trumenba 11/01/2022,03/15/2022 Meningococcal Conj (Menactra) MCV4P 03/03/2018,0 10/26/2013 Pneumococcal Conjugate 03/08/2003,2001,03/30/2002,01/27 Tdap 10/26/2013 Varicella 07/10/2010,11/24/2002 Family History Medical History Relation Name Comments No Known Problems Father bill Brain cancer Maternal Great-Grandmother Breast cancer Other Diabetes Other Hyperlipidemia Other Hypertension Other Prostate cancer Paternal Grandfather No Known Problems Sister 1 hector Roman No Known Problems Sister 2 anel Roman Relation Name Status Comments Father bill Alive Father: Alive a nd well Maternal Great-Grandmother Alive M GGM: Cancer, brain Mother Alive Mother: Alive a nd well Other Family history of Diabetes mellitus Paternal Grandfather Paterna l grandfather: High cholesterol Paternal Grandmother Paterna l grandmother: Hypertension Sister 1 hector Roman Alive Sister: Alive and well, Alive and well Sister 2 anel Roman Alive Sister: Alive and well, Alive and well Social History Tobacco Use Types Packs/Day Years Used Date Smoking Tobacco: Never Smokeless Tobacco: Never Comments:Never smoker Alcohol Use Standard Drinks/Week Comments No 0 (1 standard drink = 0.6 oz pur e alcohol) Hunger/Food Answer Date Recorded In the last 12 months, did y ou or your family ever eat less than you felt you should because there wasn't enough money for food? No 03/10/2022 Stable Housing Answer Date Recorded Are you worried that in the next 2 months you may not have stable housing? No 03/10/2022 Transportation Concerns Answer Date Rec orded In the last 12 months, have you or your family ever had to go without healthcare because you didn't have a way to get there? No 03/10/2022 Hazards in Home Answer Date Recorded Think about the place you li ve. Do you have problems with any of the following? Pests (mice or roaches), mold, no/not working smoke detectors, water leaks, no window guards. No 2021 Financing Utilities Answer Date Recorde d In the last 12 months, has t he electric, gas, oil, or water company threatened to shut off your services in your home? No 03/10/2022 Safety at Home Answer Date Recorded Are you or your family worried about feeling saf e in your home? No 03/10/2022 Outside Support Answer Date Recorded Do you feel that you need mo re support from other people or programs to help you care for yourself or your family? No 03/10/2022 Understanding Health Concerns Answer Da te Recorded Do you need help understandi ng your or your child's healthcare needs (diagnosis, medications, plan, etc.)? No 03/10/2022 Financing Health Concerns Answer Date R ecorded In the last 12 months, was t here a time when your child needed to see a doctor or get medications or supplies but could not because of cost? No 03/10/2022 Missing School or Work Answer Date Rahul rded Did you or your child miss s chool or work because of a health problem that could have been avoided? No 03/10/2022 Sex and Gender Information Value Date Recorded Sex Assigned at Male 10/21/2020 1:42 PM EST Legal Sex Male 4:40 PM EDT Gender Identity Male 10/21/2020 1:42 PM EST Sexual Orientation Straight 10/21/2020 1: 42 PM EST Last Filed Vital Signs Vital Sign Reading Time Taken Comments Blood Pressure 134/81 03/15/2022 1:03 PM EDT Pulse 72 03/15/2022 1:03 PM EDT Temperature 35.9 C (96.7 F) 10/21/2020 1:21 PM EST Respiratory Rate - - Oxygen Saturation - - Inhaled Oxygen Concentration - - Weight 109 kg (241 lb 3.2 oz) 03/15/2022 1:03 PM EDT Height 185.2 cm (6' 0.91 ) 03/15/2022 1:03 PM ED T Body Mass Index 31.9 03/15/2022 1:03 PM EDT Plan of Treatment Health Maintenance Due Date Last Done Comments DTaP,Tdap,and Td Vaccines (7 - Td or Tdap) 10/26/2023 10/26/2013, 02/21/2006, 06/09/2003, Additional history exists Influenza Vaccines (#1) 2025 06/08/20, 06/09/2021, 05/22/2020, Additional history exists COVID-19 Vaccine (5 - 2024-2 6 season) 2025 08/01/2022, 08/04/2021, 01/13/2021, Additional history exists Hepatitis B Vaccines Completed 05/26/2002, 2001, 2001 HIB Vaccines Completed 03/08/2003, 05/04, 03/30/2002, Additional history exists Pneumococcal Vaccine Completed 03/08/2003, 05/26/2002, 03/30/2002, Additional history exists IPV Vaccines Completed 02/21/2006, 11/01, 03/30/2002, Additional history exists MMR Vaccines Completed 02/21/2006, 11/24/2002 Varicella Vaccines Completed 07/10/2010, 11/24/2002 Hepatitis A Vaccines Completed 06/29/2016, 12/06/19 16 HPV Vaccines Completed 10/23/2017, 09/0 01/2017, 02/27/2017 Meningococcal Vaccine Completed 03/03/2018, 014 Men B Vaccine Completed 11/01/2022, 03/15/2022
== END 2025-06-18 14:27 | disposition home or self-care (01) ==
LOC: HO.HMCH 13:42
PROVIDERS: PCP Internal Medicine; Visit Provider Internal Medicine
DX: Z00.00 Encounter for general adult medical examination without abnormal findings (principal); L71.9 Rosacea, unspecified; E55.9 Vitamin D deficiency, unspecified; R71.8 Other abnormality of red blood cells

== ENCOUNTER → 2025-06-18 13:41 | Outpatient (BNVA) | payer OTHER, SELFPAY | PROVIDERS: PCP Internal Medicine; Visit Provider Internal Medicine | DX: Z00.00 Encounter for general adult medical examination without abnormal findings (principal); E55.9 Vitamin D deficiency, unspecified; L71.9 Rosacea, unspecified; D64.9 Anemia, unspecified | CPT/HCPCS: 96127 ==